=== PATIENT | female | born 1965 | race Caucasian/White ===

== ENCOUNTER 2018-05-20 07:09 | Day surgery (SDC) | payer OTHER ==
[2018-05-20] VITALS (14 sets, daily range): BP systolic 96–122; BP diastolic 44–78; PULSE 58–84; RESP 13–20
[~2018-05-20 07:09] MED LIST: ASPI-817 PO; PANT40TA3 PO
[2018-05-20] MEDS ORDERED: CEFAZOLIN 2 GM/50 ML (PMX) 50 ML IVPB ONE (08:00)
[2018-05-20] MEDS ORDERED: SOD CHLORIDE 0.9% 1,000 ML IV SCH (08:00)
[2018-05-20] MEDS ORDERED: BUPIVACAINE 0.5% (SDV) 30 ML INJ ONE (08:15)
[2018-05-20] MEDS ORDERED: LIDOCAINE 2% (MDV) 20 ML INJ ONE (08:15)
[2018-05-20] MEDS ORDERED: BUPIVACAINE 0.25% (MPF) 30 ML INJ ONE (08:16)
--- NOTE | 2018-05-20 09:18 | PREAC ---
Date/Time of Note Date/Time of Note DATE: 05/20/18 TIME: 09:17 Anesthesia Eval and Record Evaluation Time Pre-Procedure Interview DATE: 05/20/18 TIME: 09:17 Age 52 Sex female NPO: 8 hrs Preoperative diagnosis Rt arm mass Planned procedure Rt arm mass excision Past Medical History Past Medical History: None Surgery & Anesthesia Issues No known issue Meds Anticoagulation: No Beta Mary within 24 hr: No Reason Beta Mary not given: Pt. not on B-Mary Discontinued Reported Medications Pantoprazole* (Protonix*) 40 Mg Tablet.dr, 40 MG PO AC BREAKFAST, TAB 02/21/15 Aspirin* (Aspirin* EC) 81 Mg Tablet.dr, 81 MG PO DAILY, TAB 02/21/15 Current Medications Sodium Chloride 1,000 ml @ 75 mls/hr [id number] IV ; Start 05/20/18 at 08:00; Stop 05/20/18 at 21:19 Meds reviewed: Yes Allergies Coded Allergies: No Known Allergy (Unverified , 05/20/18) Allergies Reviewed: Yes Labs/Studies Labs Reviewed: Reviewed by anesthesiologist test: Negative Studies: ECG Pre-procedure Exam Last vitals Vital Signs Date Temp Pulse Resp B/P (MAP) Pulse Ox O2 O2 Flow FiO2 Time Delivery Rate 05/20/18 97.2 58 18 122/66 98 Room Air 07:39 (84) Airway: Adequate mouth opening, Adequate thyromental dist Mallampati: Mallampati II Teeth: Normal Lung: Normal Heart: Normal ASA Physical Status ASA physical status: 2 Emergency: None Planned Anesthetic General/MAC: LMA Planned Pain Management Parenteral pain med Pre-operative Attestations Prior to commencing anesthesia and surgery, the patient was re-evaluated, there was verification of: *The patient's identity *The results of appropriate recent lab work and preoperative vital signs *The above evaluation not changing prior to induction *Anesthetic plan, risk benefits, alternative and complications discussed with patient/family; questions answered; patient/family understands, accepts and wishes to proceed. ELLIS GILLESPIE MD May 20, 2018 09:18
[2018-05-20] MEDS ORDERED: FENTAnyl 50 MCG/ML VIAL ONE (09:26)
[2018-05-20] MEDS ORDERED: MIDAZOLAM 1 MG/ML 2 ML INJ ONE (09:26)
[2018-05-20] MEDS ORDERED: LIDOCAINE 2% (SDV) 5 ML INJ ONE (09:51)
[2018-05-20] MEDS ORDERED: PROPOFOL 20 ML ONE (09:51)
[2018-05-20] MEDS ORDERED: CEFAZOLIN 1 GM INJ ONE (09:52)
[2018-05-20] MEDS ORDERED: ONDANSETRON 4 MG INJ ONE (09:52)
--- NOTE | 2018-05-20 09:57 | OPR ---
Date/Time of Note Date/Time of Note DATE: 05/20/18 TIME: 09:55 Operative Report Procedure Date: May 20, 2018 Preoperative Diagnosis right arm mass Postoperative Diagnosis same Operation/Procedure Performed 1. excision of right arm mass 6 cm mass 6 cm incision 2. localized adjacent tissue transfer with the use of skin flaps 24 sq cm defect of right arm 3. therapeutic injection of subcutaneous local anesthesia Surgeon see signature line Clockmaker none Anesthesia Type: general Estimated Blood Loss: 10 - 50 ml's Transfusion none Specimen right arm mass Grafts/Implants none Complications none Pt Condition Post Procedure: stable Indications This is a 52-year-old female with a right arm mass. She requires surgical excision. Risks alternatives benefits and percent were discussed the patient. Patient expressed understanding and consents to the operation. Procedure Description Patient is taken to the OR and prepped and draped in usual sterile fashion. Surgical time was performed. IV antibiotics given. Transverse incision was made over the right upper arm mass with a 15 blade. Dissection with cautery was taken down to the mass and the mass was circumferentially excised. The mass was also adherent very closely to the skin and some of the skin was also excised. A large tissue defect remained. Due to the tissue defect localized adjacent to his transfer with these of skin flaps was performed. Multilayer closure was performed with interrupted 0 Vicryl and skin chapincito. Therapeutic contains local anesthesia was injected at the incision site. Dry dressings were applied. Tia AVALOS May 20, 2018 09:57
[2018-05-20] MEDS ORDERED: HYDROCODONE/APAP (5/325) TAB PO ONE (10:00)
--- NOTE | 2018-05-20 10:11 | PAC ---
Date/Time of Note Date/Time of Note DATE: 05/20/18 TIME: 10:10 Post-Anesthesia Notes Post-Anesthesia Note Last documented vital signs Vital Signs Date Temp Pulse Resp B/P (MAP) Pulse Ox O2 O2 Flow FiO2 Time Delivery Rate 05/20/18 97.2 58 18 122/66 98 Room Air 07:39 (84) Activity: WNL Respiratory function: WNL Cardiovascular function: WNL Mental status: Baseline Pain reasonably controlled: Yes Hydration appropriate: Yes Nausea/Vomiting absent: Yes Comments BP:112/65, pulse:68, spo2:100%, T:98,8 ELLIS GILLESPIE MD May 20, 2018 10:11
[2018-05-20] MEDS ORDERED: ONDANSETRON 4 MG INJ IV PRN (10:30)
[2018-05-20] MEDS ORDERED: HYDROmorphONE 1 MG/5 ML IV SYRINGE IV PRN ×2 (10:30)
[2018-05-20] MEDS ORDERED: METOCLOPRAMIDE 10 MG INJ IV PRN (10:30)
[2018-05-20] MEDS ORDERED: MEPERIDINE 25 MG INJ IV PRN (10:30)
[2018-05-20] MEDS ORDERED: FENTAnyl 50 MCG/ML VIAL IV PRN (10:30)
[2018-05-20] MEDS ORDERED: KETOROLAC 30 MG INJ IV PRN (10:30)
[2018-05-20] MEDS ORDERED: DIPHENHYDRAMINE 50 MG INJ IV PRN (10:30)
== END 2018-05-20 12:12 | disposition home or self-care (01) ==
LOC: SDS 07:09
PROVIDERS: ATTEND Surgery
DX: R22.31 Localized swelling, mass and lump, right upper limb (principal)
CPT/HCPCS: 14020; J0690; J1885; J2250; J2405; J3010; Z7610; 84703; 88307